=== PATIENT | female | born 1930 | race Caucasian/White ===

== ENCOUNTER → 2016-12-23 | Day surgery (SDC) | payer MEDICARE ==
[~2016-12-23] MED LIST: EPINEPHrine HCL (1:1000) 1 MG/ML VIAL ONE; LABETALOL HCL 100 MG/20 ML VIAL ONE; LACTATED RINGER'S 1000 ML INJ 1,000 ML ONE; ONABOTULINUMTOXINA INJ 100 UNITS/VIAL ONE; ONDANSETRON HCL 4 MG/2 ML VIAL ONE; PROPOFOL 500 MG/50 ML BTL IV ONE; SODIUM CHLORIDE 0.9% INJ 10 ML ONE
--- NOTE | 2016-12-23 15:27 | GIPROC ---
[facility] [address], [id number] EGD PROCEDURE REPORT EXAM DATE: 12/23/2016 PATIENT NAME: Fang Cobb MR #: [id number] BIRTHDATE: 1930 ATTENDING: Spike Allen MD ORDER #: [id number] PARTS IDENTIFIER: Rhoda Alston RN STATUS: outpatient INDICATIONS: The patient is a 86 yr old female here for an EGD due to dysphagia PROCEDURE PERFORMED: EGD w/ biopsy EGD w/ ablation EGD w/ dilation of esophagus via guidewire Panendoscopy with GI bleeding control clipping of AVM, clipping of EG junction MEDICATIONS: None and Per Anesthesia. TOPICAL ANESTHETIC: none CONSENT: The patient understands the risks and benefits of the procedure and understands that these risks include, but are not limited to: sedation, allergic reaction, infection, perforation and/or bleeding. Alternative means of evaluation and treatment include, among others: physical exam, x-rays, and/or surgical intervention. The patient elects to proceed with this endoscopic procedure. medical equipment was checked for proper function. Hand hygiene and appropriate measures for infection prevention was taken. After the risks, benefits and alternatives of the procedure were thoroughly explained, Informed consent was verified, confirmed and timeout was successfully executed by the treatment team. The patient was anesthetized with topical anesthesia and the EG-[id number] ([id number]) endoscope was introduced through the mouth and advanced to the second portion of the duodenum. Retroflexed views revealed small H. Hernia The gastroscope was then slowly withdrawn and removed. 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 Gastritis Bx from antrum. Torchous esophagut with multiple rings Botox injection 400 u in the EG junction dilation of the esophagus with size 18 mm endoscopy was done after dilation and there was bleeeding at the site of dilation at the EG junction for a mucosal teal, this was injected by 4 cc of epi 1/10,000 and 2 clips were put at that area. ADVERSE EVENTS: There were no complications. IMPRESSIONS: 1. 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 Gastritis Bx from antrum 3. Torchous esophagut with multiple rings Botox injection 400 u in the EG junction dilation of the esophagus with size 18 mm endoscopy was done after dilation and there was bleeeding at the site of dilation at the EG junction for a mucosal teal, this was injected by 4 cc of epi 1/10,000 and 2 clips were put at that area 4. Retroflexed views revealed small H. Hernia RECOMMENDATIONS: 1. Await biopsy results. Biopsy results will not be ready for 7-10 days. If you don't hear from us in two weeks, call our office for biopsy results. 2. Clear liquid for 24 hours if start having any chest pain or fever or abdominal pain, call immediatly or go to the ER FU in am in the clinic in 1 wk, unless needed sooner 3. Avoid NSAIDS 4. Protonix 40mg Q AM PATIENT CONDITION: stable DISPOSITION: Home REPEAT EXAM: Return 2 months EGD Spike Allen MD eSigned: Spike Allen MD 12/23/2016 3:26 PM cc: Hraish Luevano M.D. PATIENT NAME: Fang Cobb MR#: [id number]
== END | disposition home or self-care (01) ==
LOC: ESDC 13:09
PROVIDERS: ATTEND Hospitalist
DX: R13.10 Dysphagia, unspecified (principal); Q27.33 Arteriovenous malformation of digestive system vessel; K44.9 Diaphragmatic hernia without obstruction or gangrene; K22.2 Esophageal obstruction; K29.70 Gastritis, unspecified, without bleeding
CPT/HCPCS: 00740; 43239; 43248; 43255; 88305; 88312; J0171; J0585; J2405; J7120